=== PATIENT | female | born 1985 | race Hispanic/Latino ===

== ENCOUNTER 2018-01-14 15:32 | Emergency (ER) | payer MEDICAID, OTHER ==
[2018-01-14 15:51] VITALS: BP 113/74; PULSE 88; TEMP 98; O2SAT 100
--- NOTE | 2018-01-14 17:03 | RAD ---
PROCEDURE: Left Ankle Radiographs. HISTORY: lateral mall pain s/p twist and fall COMPARISON: None FINDINGS: BONES: Normal. No fracture. JOINTS: Normal. No osteoarthritis. Ankle mortise maintained. Talar dome intact SOFT TISSUES: Normal. OTHER FINDINGS: None. IMPRESSION: Normal left ankle radiographs.
--- NOTE | 2018-01-14 17:03 | RAD ---
PROCEDURE: Left Foot Radiographs. HISTORY: 4th and 5th metatarspal pian s/p twist and fall COMPARISON: None. FINDINGS: BONES: Normal. No fracture. JOINTS: Normal. SOFT TISSUES: Normal. OTHER FINDINGS: None. IMPRESSION: Normal left foot radiographs.
--- NOTE | 2018-01-14 17:05 | RAD ---
PROCEDURE: Right Knee Radiographs. HISTORY: distal patella pain s/p fall, hx prior patella fx COMPARISON: None. FINDINGS: BONES: Normal. No fracture. JOINTS: Severe patellofemoral osteoarthritis with irregular contour of. Posterior patellar articular surface. No articular erosions. Medial and lateral joint compartments are unremarkable. JOINT EFFUSION: None. OTHER FINDINGS: None. IMPRESSION: Severe patellofemoral osteoarthritis.
--- NOTE | 2018-01-14 17:07 | C.PDOC ---
History Of Present Illness 32 year old female presents to the ED c/o left foot and ankle pain and right knee pain. Patient reports she was walking and tripped in a pothole, twisted her left foot and ankle causing her to fall and land on her right knee. Patient denies LOC, headache, head injury, weakness, numbness. Time Seen by Provider: 01/14/18 16:01 Chief Complaint (Nursing): Lower Extremity Problem/Injury History Per: Patient History/Exam Limitations: no limitations Onset/Duration Of Symptoms: Hrs Current Symptoms Are (Timing): Still Present Additional History Per: Patient - Knee Description Of Injury: Fell - Ankle/Foot Description Of Injury: Twisted Past Medical History Reviewed: Historical Data, Nursing Documentation, Vital Signs Vital Signs: Last Vital Signs Temp 98 F 01/14/18 15:46 Pulse 88 01/14/18 15:46 Resp 20 01/14/18 17:45 BP 113/74 01/14/18 15:46 Pulse Ox 100 01/15/18 12:05 - Medical History PMH: Bipolar Disorder, Depression Other Surgeries: right knee Family History: States: Unknown Family Hx - Social History Hx Alcohol Use: Yes Hx Substance Use: No - Immunization History Hx Tetanus Toxoid Vaccination: No Hx Influenza Vaccination: No Hx Pneumococcal Vaccination: No Review Of Systems Constitutional: Negative for: Fever, Chills Musculoskeletal: Positive for: Leg Pain (right knee), Foot Pain (and ankle- left ). Negative for: Back Pain Skin: Negative for: Rash Neurological: Negative for: Weakness, Numbness, Headache Physical Exam - Physical Exam Appears: Non-toxic, No Acute Distress Skin: Normal Color, Warm, Dry Head: Atraumatic, Normacephalic Eye(s): bilateral: Normal Inspection Neck: No Midline Cervical Tenderness Extremity: Normal ROM, Tenderness (left lateral malleolus, proximal dorsum of left foot, mild 5th metatarsal, distal right knee ), No Pedal Edema, Capillary Refill (< 2 seconds), Swelling (mild swelling dorsum left foot over 4th metatarsal), Other (Thigh non tender) Pulses: Left Dorsalis Pedis: Normal, Right Dorsalis Pedis: Normal Neurological/Psych: Oriented x3, Normal Speech, Normal Cognition, Normal Motor, Normal Sensation Gait: Steady ED Course And Treatment O2 Sat by Pulse Oximetry: 100 (On RA) Pulse Ox Interpretation: Normal - Other Rad right knee X-Ray: Viewed By Me, Read By Radiologist Interpretation: IMPRESSION: Severe patellofemoral osteoarthritis. left foot X-Ray: Viewed By Me, Read By Radiologist Interpretation: IMPRESSION: Normal left foot radiographs. left ankle X-Ray: Viewed By Me, Read By Radiologist Interpretation: IMPRESSION: Normal left ankle radiographs. Medical Decision Making Medical Decision Making: Impression: left ankle, foot and right knee pain s/p fall Plan: * Tylenol 975 mg PO * Left ankle X-Ray * Left foot X-Ray * Right knee X-Ray 520 pm pt with neg xray for acute pathology. will apply aircast to left ankle and crutches, with ortho follow up Disposition Counseled Patient/Family Regarding: Studies Performed, Diagnosis, Need For Followup, Rx Given - Disposition Referrals: [facility] [Outside] José Miguel Gilman III, MD [Staff Provider] - Disposition: HOME/ ROUTINE Disposition Time: 17:24 Condition: GOOD Additional Instructions: Please wear aircast for comfort when awake. Use crutches- no weight bearing for the next few days. then gradually start putting gentle pressure on left foot. Follow up with mold operator or orthopedist. Tylenol for pain. Prescriptions: Acetaminophen [Acetaminophen ER] 650 mg PO Q6 #30 tablet.er Instructions: Ankle Sprain (DC) Forms: [facility] (Yakut), General Discharge Instructions - Clinical Impression Clinical Impression: Fall from slip, trip, or stumble, Knee pain, right, Left ankle sprain - PA / EPIC ANALYST / Resident Statement MD/DO has reviewed & agrees with the documentation as recorded. - Scribe Statement The provider has reviewed the documentation as recorded by the Scribed Lewis All medical record entries made by the Scribe were at my direction and personally dictated by me. I have reviewed the chart and agree that the record accurately reflects my personal performance of the history, physical exam, medical decision making, and the department course for this patient. I have also personally directed, reviewed, and agree with the discharge instructions and disposition.
[2018-01-14 17:46] VITALS: RESP 20
== END 2018-01-14 17:45 | disposition home or self-care (01) ==
LOC: C.ER 15:32
DX: M25.561 Pain in right knee (principal); S93.402A Sprain of unspecified ligament of left ankle, initial encounter; W01.0XXA Fall on same level from slipping, tripping and stumbling without subsequent striking against object, initial encounter; Y92.410 Unspecified street and highway as the place of occurrence of the external cause